=== PATIENT | female | born 1995 | race Caucasian/White ===

== ENCOUNTER 2016-03-09 07:46 | Emergency (ER) | payer BC ==
--- NOTE | 2016-03-09 08:55 | EDPHY ---
H & P Stated Complaint: HEADACHES FOR OVER A MONTH, NOW LASTING LONGER Time Seen by Provider: 03/09/16 08:54 - Personal History LMP (Females 10-55): 15-21 Days Ago Current Tetanus Diphtheria and Acellular Pertussis (TDAP): Yes Tetanus Vaccine Date: < 10 YEARS - Medical/Surgical History Hx Asthma: No Hx Chronic Respiratory Disease: No Hx Diabetes: No Hx Cardiac Disease: No Hx Renal Disease: No Hx Cirrhosis: No Hx Alcoholism: No Hx HIV/AIDS: No Hx Splenectomy or Spleen Trauma: No Other PMH: DENIES - Social History Smoking Status: Never smoked Constitutional: Initial Vital Signs Temperature (C) 36.6 C 03/09/16 07:50 Heart Rate 69 03/09/16 07:50 Respiratory Rate 16 03/09/16 07:50 Blood Pressure 103/58 L 03/09/16 07:50 O2 Sat (%) 99 03/09/16 07:50 O2 Delivery Mode Room Air Allergies/Adverse Reactions: No Known Allergies Allergy (Unverified 03/09/16 07:53) Home Medications: Medication Instructions Recorded NK [No Known Home Meds] 03/09/16 Medical Decision Making ED Course/Re-evaluation: CHIEF COMPLAINT: Headaches. HISTORY OF PRESENT ILLNESS: The patient is a 20-year-old female who presents with intermittent headaches for over a month. They initially would last 30 seconds but now last longer. She currently has a headache rated as 2/10. She denies numbness, weakness, dizziness, or other complaints. She has not seen a neurologist for this complaint and has no family history. REVIEW OF SYSTEMS: A 10 point review of systems was performed and is negative with the exception of the elements mentioned in the history of present illness. PHYSICAL EXAM: HR, BP, O2 Sat, RR. Temp noted General Appearance: Alert, well hydrated, appropriate, and non-toxic appearing. Head: Atraumatic without scalp tenderness or obvious injury Eyes: Pupils equal, round, reactive to light and accommodation, EOMI, no trauma , no injection. Ears: Clear bilaterally, no perforation, normal landmarks Nose: Atraumatic, no rhinorrhea, clear. Throat: There is no erythema or exudates, no lesions, normal tonsils, mucus membranes moist. Neck: Supple, 2+ carotid upstroke, nontender, no lymphadenopathy. Respiratory: No retractions, no distress, no wheezes, and no accessory muscle use. Lungs are clear to auscultation bilaterally. Cardiovascular: Regular rate and rhythm, no murmurs, rubs, or gallops. Bilateral carotid, radial, dorsalis pedis, and posterior tibial pulses intact. Good capillary refill all extremities. Gastrointestinal: Abdomen is soft, nontender, non-distended, no masses, no rebound, no guarding, no peritoneal signs. Musculoskeletal: Normal active ROM of all extremities, atraumatic. Neurological: Alert, appropriate, and interactive. The patient has normal DTRs and non-focal cranial nerves, motor, sensory, and cerebellar exam. Skin: No rashes, good turgor, no nodules on palpation. Past medical history:Denies. Past surgical history:Denies. Family history:Non-contributory. Social history:Here alone. DIAGNOSTICS/PROCEDURES/CRITICAL CARE TIME: Study: MRI of the: Brain Indication: Headaches. Results: Normal. The study was read by the radiologist, Dr. Ruiz. I viewed the images myself on the PACS system. DIFFERENTIAL DIAGNOSIS: The differential diagnosis for the patient's headache included but was not limited to subarachnoid hemorrhage, migraine headache, tension headache and infectious causes such as meningitis, pharyngitis and sinusitis. MEDICAL DECISION MAKING: This 20-year-old female with no headache history presents with intermittent headaches for the past month. She reports that they were initially very short in duration but have now become more frequent and longer-lasting. She needs outpatient workup with a neurologist but she will have an MRI taken this morning to rule out acute intracranial process. 1026: MRI negative per Dr. Ruiz. I discussed this with the patient at this time and answered her questions. She is comfortable being discharged. She will go home with neuro follow up. Departure - Departure Disposition: Home, Routine, Self-Care Clinical Impression: Headache Condition: Good Instructions: Acute Headache (ED) Referrals: Dixon Hernandez MD [Medical Doctor] - As per Instructions Report Scribed for: Wesly Lewis Report Scribed by: Floyd Day Date of Report: 03/09/16 Time of Report: 08:55
[2016-03-09] MEDS ORDERED: GADOBUTROL 10 ML VIAL IVP ONE (09:59)
--- NOTE | 2016-03-09 10:29 | MR ---
MRI of the Brain (Without and With Contrast) at 0936 hours Clinical Indication: Headache. Technique: MRI was performed of the brain using a 3 [employer] MRI system. Sagittal, axial, and coronal i mages were performed using standard imaging sequences. Images were obtained pre and post intravenous contrast, 5 mL of Gadavist. Findings: The ventricles, cisterns, and sulci are normal for the patient's age. No evidence for an e xtra-axial fluid collection. No evidence for mass effect or midline shift. No significant white matte r lesion is identified. No evidence for intracranial mass, hemorrhage, or infarct. Diffusion-weighted images are normal. Posterior fossa appears normal with a normal appearance to the craniocervical olive ction. Pituitary gland is normal in size. The major caliber vessels visualized are normal in appearan ce. Incidental 1.5 cm mucous retention cyst left maxillary sinus. Paranasal sinuses and mastoid air c ells are otherwise clear. Impression: Normal MRI of the brain without and with contrast. Results called to Dr. Wesly Lewis.
[2016-03-09 10:51] VITALS: BP 102/63; PULSE 67; RESP 18; TEMP 98.2; O2SAT 100
== END 2016-03-09 10:51 | disposition home or self-care (01) ==
DX: R51 Headache (principal)
CPT/HCPCS: A9585